=== PATIENT | male | born 1950 | race Caucasian/White ===

== ENCOUNTER 2021-05-26 00:24 | Day surgery (SDC) | payer MEDICARE, SELFPAY ==
[2021-05-11 15:15] VITALS: BMI 40.1
--- NOTE | 2021-05-25 09:36 | WPDANESEPPF ---
Anes - Initial Pre Proc Eval Procedure: Operation Date: 05/26/21 11:30 Proposed Procedures p Screening Colonoscopy - Rocco Choi MD Date/Time: 05/25/21 09:36 Surgeon: Rocco Choi MD Pre Op Diagnosis: hx of polyps Patient Data Age: 70 Gender: M Height: 1.68 m Weight: 113 kg Allergies Allergy/AdvReac Type Severity Reaction Status Date / Time No Known Allergies Allergy Mild Verified 05/26/21 10:46 Home Medications Medication Instructions Recorded Confirmed Type aspirin 81 mg tablet,delayed 81 mg PO DAILY 07/04/19 05/11/21 History release blood sugar diagnostic #10 each 10/24/19 03/31/21 History tamsulosin 0.4 mg capsule 0.4 mg PO DAILY #90 cap 10/24/19 05/11/21 Rx allopurinol 300 mg tablet 300 mg PO DAILY #90 tablet 10/05/20 05/11/21 Rx atorvastatin 10 mg tablet 10 mg PO DAILY #90 tablet 10/05/20 05/11/21 Rx quinapril 40 mg tablet 40 mg PO DAILY #90 tablet 10/05/20 05/11/21 Rx amlodipine 10 mg tablet 10 mg PO DAILY #90 tablet 10/29/20 05/11/21 Rx metformin 500 mg tablet,extended 1,000 mg PO BID #360 tablet 12/30/20 05/11/21 Rx release 24 hr temazepam 30 mg capsule 30 mg PO QHS PRN #30 cap 04/02/21 05/11/21 Rx dulaglutide 3 mg/0.5 mL 3 mg SUBCUT WEEKLY #6 ml 04/16/21 05/11/21 Rx subcutaneous pen injector amitriptyline 10 mg PO . q.h.s. 05/11/21 05/11/21 History cholecalciferol (vitamin D3) 100 mcg PO DAILY 05/11/21 05/11/21 History [Vitamin D3] levothyroxine [Euthyrox] 150 mcg PO DAILY 05/11/21 05/11/21 History mecobalamin (vitamin B12) 1,000 mcg PO DAILY 05/11/21 05/11/21 History Patient hx anesthesia problems: none Family hx anesthesia problems: none Results Review: All pre-operative results and documents have been reviewed as part of the pre-operative evaluation. [facility] Past Medical History Medical History (Updated 05/25/21 @ 09:37 by Bipin Tipton DO) Controlled type 2 diabetes mellitus with hyperglycemia, without long-term current use of insulin glucose 108 and hemoglobin A1c 7.0 on 03/29/2021 Diabetic peripheral neuropathy associated with type 2 diabetes mellitus Essential (primary) hypertension Hypothyroidism, unspecified TSH therapeutic at 1.07 on 03/29/2021 Lipoma of chest wall Mixed hyperlipidemia total cholesterol 117, triglycerides 174, HDL 41 and LDL 51 on 03/29/2021 Occult GI bleeding Family History Family History (Updated 11/15/18 @ 12:52 by DOCTOR UNKNOWN) Father Cerebrovascular accident, Onset Age: 73 Social History Social History (Updated 03/31/21 @ 14:21 by Becki Norris MA) Smoking status: Never smoker Alcohol intake: current Alcohol use details: VERY RARELY Substance use: never Substance use type: does not use Living arrangements: with family Spiritual care concerns: No Anes - Eval Final PreProcedure Day of Procedure 05/25/21 09:36 Patient weight: morbidly obese Heart: regular rate and rhythm Lungs: clear to auscultation and normal air movement Airway: Mallampati scale class II Neurological: alert and oriented Last oral intake: >/= 8 hours ASA classification: III Emergent: no Anesthetic plan: proceed Anesthesia type and monitoring: general GIVS and standard monitoring Results Review: All pre-operative results and documents have been reviewed as part of the pre-operative evaluation. Informed Consent: The patient's anesthetic plan and its attendant risks and benefits were discussed with the patient/family/POA. Questions were solicited and answers provided to the satisfaction of the patient/family/POA.
[2021-05-26 10:49] VITALS: BP 163/99; PULSE 106; RESP 22; TEMP 36.7; O2SAT 97; BMI 40.2
[2021-05-26] MEDS: LACTATED RINGERS 1,000 ML 150 ML IV CONT (10:52)
[2021-05-26 11:05] LABS: Glucose Point of Care 140 mg/dl (65-105)
--- NOTE | 2021-05-26 11:17 | PM.HPGS ---
History of Present Illness History of Present Illness Consent: Risks, benefits, and alternatives have been discussed and questions answered. Patient agrees to proceed with procedure. Chief complaint: hx of polyps Narrative: Juan Causey is a 70 year old male Here for colon cancer screening. He has had a polyp removed in the past Review of Systems Review of Systems: All systems reviewed & are unremarkable except as noted in HPI and below PMFSH Past Medical History Medical History Controlled type 2 diabetes mellitus with hyperglycemia, without long-term current use of insulin glucose 108 and hemoglobin A1c 7.0 on 03/29/2021 Diabetic peripheral neuropathy associated with type 2 diabetes mellitus Essential (primary) hypertension Hypothyroidism, unspecified TSH therapeutic at 1.07 on 03/29/2021 Lipoma of chest wall Mixed hyperlipidemia total cholesterol 117, triglycerides 174, HDL 41 and LDL 51 on 03/29/2021 Occult GI bleeding Family History Family History Father Cerebrovascular accident, Onset Age: 73 Social History Social History Smoking status: Never smoker Alcohol intake: current Alcohol use details: VERY RARELY Substance use: never Substance use type: does not use Living arrangements: with family Spiritual care concerns: No Meds Home Medications and Allergies Home Medications Medication Instructions Recorded Confirmed Type aspirin 81 mg tablet,delayed 81 mg PO DAILY 07/04/19 05/11/21 History release blood sugar diagnostic #10 each 10/24/19 03/31/21 History tamsulosin 0.4 mg capsule 0.4 mg PO DAILY #90 cap 10/24/19 05/11/21 Rx allopurinol 300 mg tablet 300 mg PO DAILY #90 tablet 10/05/20 05/11/21 Rx atorvastatin 10 mg tablet 10 mg PO DAILY #90 tablet 10/05/20 05/11/21 Rx quinapril 40 mg tablet 40 mg PO DAILY #90 tablet 10/05/20 05/11/21 Rx amlodipine 10 mg tablet 10 mg PO DAILY #90 tablet 10/29/20 05/11/21 Rx metformin 500 mg tablet,extended 1,000 mg PO BID #360 tablet 12/30/20 05/11/21 Rx release 24 hr temazepam 30 mg capsule 30 mg PO QHS PRN #30 cap 04/02/21 05/11/21 Rx dulaglutide 3 mg/0.5 mL 3 mg SUBCUT WEEKLY #6 ml 04/16/21 05/11/21 Rx subcutaneous pen injector amitriptyline 10 mg PO . q.h.s. 05/11/21 05/11/21 History cholecalciferol (vitamin D3) 100 mcg PO DAILY 05/11/21 05/11/21 History [Vitamin D3] levothyroxine [Euthyrox] 150 mcg PO DAILY 05/11/21 05/11/21 History mecobalamin (vitamin B12) 1,000 mcg PO DAILY 05/11/21 05/11/21 History Allergies Allergy/AdvReac Type Severity Reaction Status Date / Time No Known Allergies Allergy Mild Verified 05/26/21 10:46 Vital Signs Vital Signs - 24 hr 05/26/21 10:49 Temperature 36.7 C Pulse Rate 106 H Respiratory Rate 22 H Blood Pressure 163/99 H Pulse Oximetry 97 Exam Resp: Auscultation: clear to auscultation bilaterally Cardio: Rate: regular rate Rhythm: regular rhythm GI: GI Palp: Yes Soft to palpation and No Tenderness to palpation present (GI) Assessment and Plan Assessment and plan (1) Colon cancer screening: Code(s): Z12.11 - Encounter for screening for malignant neoplasm of colon Status: Acute Assessment and Plan: Colonoscopy with possible biopsy or polypectomy or cautery or injection of substances.
[2021-05-26 11:57] VITALS: BP 99/58; PULSE 89; RESP 18; O2SAT 97
[2021-05-26 12:07] VITALS: BP 119/69; PULSE 79; RESP 21; O2SAT 96
[2021-05-26 12:17] VITALS: BP 117/60; PULSE 80; RESP 22; O2SAT 98
== END 2021-05-26 12:34 | disposition home or self-care (01) ==
PROVIDERS: PCP Family Medicine; Visit Provider Internal Medicine Gastroenterology
PROC: 0DJD8ZZ Inspection of Lower Intestinal Tract, Via Natural or Artificial Opening Endoscopic (ICD-10-PCS; CPT 45378; principal; 2021-05-26 11:30)
DX: Z12.11 Encounter for screening for malignant neoplasm of colon (principal); K63.5 Polyp of colon; E11.42 Type 2 diabetes mellitus with diabetic polyneuropathy; E03.9 Hypothyroidism, unspecified; E78.2 Mixed hyperlipidemia; Z79.82 Long term (current) use of aspirin; Z79.84 Long term (current) use of oral hypoglycemic drugs; E66.01 Morbid (severe) obesity due to excess calories; Z68.41 Body mass index [BMI] 40.0-44.9, adult; E11.65 Type 2 diabetes mellitus with hyperglycemia
CPT/HCPCS: 45385; 82948; 88305; J2704; J7120

== ENCOUNTER 2024-08-06 10:26 | Outpatient (CLI) | payer MEDICARE, SELFPAY ==
--- NOTE | 2024-08-18 20:09 | WPDHOMESLEEP ---
Sleep Study - Home Unattended Date of Study: 08/06/24 Ordering Provider: Nick Lea MD Interpreting Provider: Latesha Leahy MD Home Sleep Study Type: Watch PAT Height: 1.68 m Weight: 112.037 kg Body Mass Index: 39.9 Neck Circumference (inches): 17 [place]: 6 Reason for Sleep Study Hypersomnia Sleep History Juan Causey is a 73-year-old man with a history of sleep apnea, untreated, diagnosed in 2014. Now with diabetes, risk of congestive heart failure, hypertension, and obesity, he needs to be retested. He has a history of witnessed apnea, and he has episodes of choking and gasping during sleep. He does not have trouble sleeping on his back and does not have morning headaches. He does awaken with a dry mouth. He does not have nocturnal heart heartburn nor does he have nocturia. On the night of the study he woke more than 3 times to make a trip to the bathroom. He had a prior sleep study in 2015 but does not remember much about the results. He generally awakens feeling tired and has non refreshing sleep. He sleepy during the day and he has urge to fall asleep however he does not have drowsy driving. He has difficulty falling asleep and wakes up before his expected wake time. He does use medications to help him get to sleep. He does not grind his teeth or clench his teeth. He does have restless feelings in his legs and he kicks excessively during the night. His uncomfortable leg sensations cause him to want to move his legs and this sensation is worse with rest. It does not get better with activities. It only occurs in the evening in the night time. This does give him a cause for concern. He is more alert in the evening compared to the morning. He has difficulty falling asleep at his anticipated bedtime. He does not feel paralyzed on waking or falling asleep nor does he have vivid dreamlike scenes upon awakening or falling asleep. He does not act out his dreams. There is no family history of sleep disordered breathing. Normal bedtime is 3:00 a.m., taking an hour to fall asleep, spending 10 hours in bed, sleeping 7 of those hours. He keeps the same schedule on weekends. He does not take planned naps. Habits: tobacco: none Caffeine: 3-4 cups daily Alcohol: rarely Recreational substances: none His insomnia severity index is 12, elevated. He has moderate difficulty falling asleep, moderate difficulty staying asleep. He has mild issues with waking up too early in the morning. He is very dissatisfied with his sleep pattern. His sleep pattern moderately interferes with his daytime functioning. It is slightly interferes with the quality of his life. He has a little bit of worry about his sleep issues. 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 Elevated liver enzymes (03/28/23) AST normal at 29 with ALT elevated at 51 on 03/28/2023. AST 40, ALT 68 on 10/05/2023. Encounter for prostate cancer screening PSA 1.38 on 09/19/2022. PSA 1.23 on 10/05/2023. Morbid obesity with BMI of 40.0-44.9, adult Acute non-recurrent maxillary sinusitis Colon cancer screening Occult GI bleeding Lipoma of chest wall Diabetic peripheral neuropathy associated with type 2 diabetes mellitus Vitamin B12 1842 on 09/07/2021. Vitamin B12 600 with folic acid 24 on 03/28/2023. Essential (primary) hypertension Hypothyroidism, unspecified TSH therapeutic at 1.07 on 03/29/2021. TSH 0.67 on 03/07/2022. TSH 0.31 03/28/2023. TSH 2.0 on 10/05/2023. Mixed hyperlipidemia total cholesterol 117, triglycerides 174, HDL 41 and LDL 51 on 03/29/2021. Cholesterol 119, triglycerides 165, HDL 40, LDL 55 on 09/19/2022. Cholesterol 103, triglycerides 162, HDL 38, LDL 41 on 03/28/2023. Cholesterol 162, triglycerides 214, HDL 40, LDL 91 with ratio 4.1 on 10/05/2023. Controlled type 2 diabetes mellitus with hyperglycemia, without long-term current use of insulin glucose 108 and hemoglobin A1c 7.0 on 03/29/2021. glucose 117 with hemoglobin A1c 7.8 and urine microalbumin ratio of 12 on 09/19/2022. Glucose 102 with hemoglobin A1c 6.4 on 03/28/2023. Glucose 93 with hemoglobin A1c 6.8 and urine microalbumin ratio of 6 on 10/05/2023. Family History Family History Father Cerebrovascular accident, Onset Age: 73 Social History Social History Smoking status: Never smoker Alcohol intake: current Alcohol use details: VERY RARELY Substance use: never Substance use type: does not use Lack of Transportation: No Lack of Food: Never True Current Housing: I Have Housing Concerned About Future Housing: No Difficulty Paying Gas/Electric Bills: No Difficulty Paying for Meds: No Currently Unemployed: No Education: High School Diploma/GED Difficulty w/ Childcare or Family Care: No Living arrangements: with family Spiritual care concerns: No Medications Home Medications ?Medication ?Instructions ?Recorded ?Confirmed ?Type aspirin 81 mg tablet,delayed 81 mg PO DAILY 07/04/19 05/08/24 History release (Adult Low Dose Aspirin) blood sugar diagnostic #10 ea 10/24/19 05/08/24 History mecobalamin (vitamin B12) 1,000 1,000 mcg PO DAILY 05/11/21 05/08/24 History mcg chewable tablet cholecalciferol (vitamin D3) 125 5,000 unit PO DAILY 09/21/22 05/08/24 History mcg (5,000 unit) capsule cetirizine 10 mg tablet (Zyrtec) 10 mg PO QHS PRN allergy symptoms 08/01/23 05/08/24 History fluticasone propionate 50 1 spray intranasal BID #16 grams 08/01/23 05/08/24 Rx mcg/actuation nasal spray,suspension (Flonase Allergy Relief) levothyroxine 150 mcg tablet 150 mcg PO DAILY #90 tabs 09/28/23 05/08/24 Rx allopurinol 300 mg tablet 300 mg PO DAILY #90 tabs 10/11/23 05/08/24 Rx amlodipine 10 mg tablet 10 mg PO DAILY #90 tabs 10/11/23 05/08/24 Rx metformin 500 mg tablet,extended 1,000 mg (2 x 500 mg) PO BID #360 10/11/23 05/08/24 Rx release 24 hr tabs dulaglutide 3 mg/0.5 mL 3 mg (0.5 mL) subcut WEEKLY #6 mL 04/09/24 05/08/24 Rx subcutaneous pen injector (Trulicity) tamsulosin 0.4 mg capsule 0.4 mg PO Q24H #90 caps 05/08/24 05/08/24 Rx duloxetine 60 mg capsule,delayed 60 mg PO DAILY #30 caps 05/21/24 Rx release lisinopril 40 mg tablet 40 mg PO DAILY #90 tabs 06/04/24 Rx Sleep Procedure The sleep study was completed using SuccessTSMT a technically adequate device with seven channels: peripheral arterial tone, actigraphy, body position, snore, respiratory movement, pulse oximetry, sleep staging, and heart rate. Prior to using the device, the patient received verbal and written instructions for its application and was provided with the help desk phone number for additional telephonic instruction with 24-hour availability of qualified personnel to answer questions. Sleep Architecture The total recording time is 6 hours 58 minutes. The total sleep time is 4 hours 10 minutes. Sleep latency is 20 minutes. REM latency is 52 minutes. The patient had 15 episodes of waking. Sleep architecture shows 3% deep sleep, 74% light sleep and 23% stage REM. The patient spent 66% of the total sleep time in the supine position. Sleep efficiency was 60%. Respiratory Analysis The overall apnea-hypopnea index using 3% criteria is 26.6. The central apnea-hypopnea index is 4.1. The apnea-hypopnea index was 27.4 in non-REM and 24.1 in REM. The AHI was 26.3 in the supine position and 27.3 in the nonsupine position. The patient has had 0% Seymour-Mckenzie respirations. Oximetry Data The oxygen desaturation index at 4% was 13.7. The mean saturation is 94% and lowest saturation is 80% the patient spent 1 minute below 88% saturation, 0.4% of sleep time. Snoring Profile Snoring was present, mean intensity 41 decibels, and 20 minutes of sleep time spent above 45 decibels. This is 8% of sleep time. Cardiac Profile The mean heart rate is 75 beats per minute. The minimum heart rate is 53 beats per minute and the maximum heart rate is 99 beats per minute. The cardiac rhythm analysis in sleep did not detect any atrial fibrillation. Assessment and Plan Assessment and Plan (1) Obstructive sleep apnea: Code(s): G47.33 - Obstructive sleep apnea (adult) (pediatric) Status: Acute Assessment and Plan: This home sleep test using WatchPat on 08/06/2024 shows moderate obstructive sleep apnea using the 3% criteria, the overall apnea-hypopnea index is 26.6, desaturation to 80%, and using 4% criteria the apnea-hypopnea index is 13.2. There is central apnea-hypopnea index of 4.1 using the 3% criteria. No Seymour-Mckenzie respirations noted. The patient has a prior history of diagnosis of sleep apnea in 2014 and had no effective treatment or he was treated and did not tolerate PAP therapy. He keeps very late hours, bedtime is around 3:00 a.m.. For this reason, it would be difficult for him to have a CPAP titration in the sleep lab as the normal anticipated sleep time is 10:00 p.m.. Even with a sleep aid, the patient is not going to be able fall asleep at 10:00 p.m.. For this reason I would recommend a trial of auto-PAP although if he has failed this in the past, I do not expect him to have much success. BMI is 39. Weight management is advised. Clinical data suggests that weight loss of 10% can reduce the severity of respiratory events and snoring and improve AHI by as much as 25%. (2) Restless leg syndrome: Code(s): G25.81 - Restless legs syndrome Status: Acute Assessment and Plan: He has restless legs syndrome by history, uncomfortable feelings in his legs mainly in the evening and night, worse with resting, however does not improve with activity and usually restless legs syndrome does improve with activity. This condition may be making it more difficult for him to fall asleep and stay asleep. His ferritin was 308, in the normal range, on 09/07/2021. This needs to be rechecked. Ferritin level is indicated to exclude iron deficiency anemia as a contributing factor. Ferritin should be 75 ng/mL or greater. If ferritin is below this, iron supplementation should be given to achieve ferritin of 75 ng/mL. There are nonpharmacologic methods to treat limb movements including daily exercise, stretching calf muscles before bed, avoiding excessive amounts of caffeine and alcohol, vitamin B supplementation, magnesium lotion massaged into legs before bed, and use of a weighted blanket. Pharmacologic therapy is very effective for restless legs syndrome and limb movements during sleep and may include [id number] voltage-gated calcium channel ligands such as gabapentin which is preferable to dopaminergic agents which can have augmentation. Other treatments can include opioids and benzodiazepines. (3) Chronic insomnia: Code(s): F51.04 - Psychophysiologic insomnia Status: Acute Assessment and Plan: Data The data obtained during this sleep study is adequate for interpretation. Certification This sleep study has been reviewed by a board certified sleep medicine physician.
[2024-08-18 21:08] VITALS: BMI 39.9
== END 2024-08-07 11:32 | disposition home or self-care (01) ==
PROVIDERS: PCP Family Medicine; Visit Provider Family Medicine
DX: G47.33 Obstructive sleep apnea (adult) (pediatric) (principal); G25.81 Restless legs syndrome; F51.04 Psychophysiologic insomnia; G47.10 Hypersomnia, unspecified
CPT/HCPCS: 95800